=== PATIENT | female | born 1945 | race Caucasian/White ===

== ENCOUNTER 2022-03-17 09:29 | Emergency (ER) | payer MEDICARE ==
[2022-03-17] MEDS ORDERED: normal saline 1000ml 1,000 ML IV ONE (10:30)
[2022-03-17 10:52] LABS: BASOPHILS % (AUTO) 0.6 % (0-1); EOSINOPHILS # (AUTO) 0.1 X10'3 (0-0.9); EOSINOPHILS % (AUTO) 0.8 % (0-6); HEMATOCRIT 39.6 % (35.0-45.0); HEMOGLOBIN 13.1 g/dl (12.0-16.0); LYMPHOCYTES # (AUTO) 0.8 X10'3 (1.1-4.8); LYMPHOCYTES % (AUTO) 9.1 % (21-51); MEAN CORPUSCULAR VOLUME 93.9 FL (78-98); MEAN PLATELET VOLUME 7.7 FL (7.4-10.4); MONOCYTES # (AUTO) 0.5 X10'3 (0-0.9); MONOCYTES % (AUTO) 6.3 % (2-12); NEUTROPHILS # (AUTO) 7.1 X10'3 (1.8-7.7); NEUTROPHILS % (AUTO) 83.2 % (42-75); PLATELET COUNT 239 X10'3 (140-440); RED BLOOD COUNT 4.22 X10'6 (4.20-5.60); RED CELL DISTRIBUTION WIDTH 13.2 % (11.5-14.5); WHITE BLOOD COUNT 8.5 X10'3 (4.5-11.0)
[2022-03-17 11:07] LABS: ALANINE AMINOTRANSFERASE 23 U/L (12-78); ALBUMIN 3.2 G/DL (3.4-5.0); ALBUMIN/GLOBULIN RATIO 0.9 (1.1-1.5); ALKALINE PHOSPHATASE 99 IU/L (46-116); ANION GAP 6 (8-16); ASPARTATE AMINO TRANSFERASE 55 U/L (10-37); BILIRUBIN,TOTAL 0.5 MG/DL (0.1-1.0); BLOOD UREA NITROGEN 11 MG/DL (7-18); BUN/CREATININE RATIO 15.5 (6.6-38.0); CALCIUM 9.1 MG/DL (8.5-10.1); CHLORIDE 103 MMOL/L (99-107); CREATININE 0.71 MG/DL (0.40-0.90); GLUCOSE 94 MG/DL (70-104); SODIUM 141 MMOL/L (135-145); TOTAL CARBON DIOXIDE 31.8 MMOL/L (24-32); TOTAL PROTEIN 6.6 G/DL (6.4-8.2); eGFR 80 ML/MIN
[2022-03-17 11:10] LABS: CLARITY,URINE CLEAR (Clear); COLOR,URINE YELLOW (Yellow); GLUCOSE, URINE NEGATIVE (Neg); KETONES,URINE NEGATIVE (Neg); LEUKOCYTE ESTERASE ,URINE NEGATIVE (Neg); NITRITES, URINE NEGATIVE (Neg); OCCULT BLOOD,URINE NEGATIVE (Neg); PROTEIN,URINE NEGATIVE (Neg)
[2022-03-17 11:26] LABS: UA COLLECTION TYPE FOLEY CATH
[2022-03-17 12:29] VITALS: BP 174/67
== END 2022-03-17 12:31 | disposition home or self-care (01) ==
LOC: ER 09:29
DX: F03.90 Unspecified dementia, unspecified severity, without behavioral disturbance, psychotic disturbance, mood disturbance, and anxiety (principal); R53.1 Weakness; Z88.2 Allergy status to sulfonamides; Z79.899 Other long term (current) drug therapy
CPT/HCPCS: 36415; 80053; 81003; 85025; 93005; 96360; 99284; J7030

== ENCOUNTER 2022-03-20 15:44 | Emergency (ER) | payer MEDICARE ==
[~2022-03-20] VITALS: Ht 165.1 cm; Wt 50.0 kg
--- NOTE | 2022-03-20 17:37 | NUR ---
LANCE HORTON(SISTER) #[phone] CALLED TO SAY THAT PT OVER THE PAST FEW WEEKS HAS PROGRESSIVLY GOT WEAKEN HASNT BEEN TAKING MEDS AND HASNT BEEN EATING. FAMILY ALSO STATES SHE HAD A FALL ON November HAD A FALL SEEN AT [facility] HAS GOTTEN WEAKER SINCE THEN. HISTORY OF STROKE 10 YEARS AGO
[2022-03-20 17:42] LABS: BASOPHILS # (AUTO) 0.1 X10'3 (0-0.2); BASOPHILS % (AUTO) 0.5 % (0-1); EOSINOPHILS # (AUTO) 0.1 X10'3 (0-0.9); EOSINOPHILS % (AUTO) 0.6 % (0-6); HEMATOCRIT 40.3 % (35.0-45.0); HEMOGLOBIN 13.4 g/dl (12.0-16.0); LYMPHOCYTES # (AUTO) 0.7 X10'3 (1.1-4.8); MEAN CORPUSCULAR HEMOGLOBIN 31.3 PG (27.0-31.0); MEAN CORPUSCULAR HGB CONC 33.4 g/dL (33.0-36.5); MEAN CORPUSCULAR VOLUME 93.9 FL (78-98); MEAN PLATELET VOLUME 8.4 FL (7.4-10.4); MONOCYTES # (AUTO) 0.6 X10'3 (0-0.9); MONOCYTES % (AUTO) 6.3 % (2-12); NEUTROPHILS # (AUTO) 8.7 X10'3 (1.8-7.7); NEUTROPHILS % (AUTO) 85.6 % (42-75); PLATELET COUNT 234 X10'3 (140-440); RED BLOOD COUNT 4.29 X10'6 (4.20-5.60); RED CELL DISTRIBUTION WIDTH 13.2 % (11.5-14.5); WHITE BLOOD COUNT 10.1 X10'3 (4.5-11.0)
[2022-03-20 17:50] LABS: APTT 27 SECONDS (22-32)
[2022-03-20 17:53] LABS: ALANINE AMINOTRANSFERASE 19 U/L (12-78); ALBUMIN 3.3 G/DL (3.4-5.0); ALBUMIN/GLOBULIN RATIO 0.9 (1.1-1.5); ALKALINE PHOSPHATASE 105 IU/L (46-116); ANION GAP 9 (8-16); ASPARTATE AMINO TRANSFERASE 44 U/L (10-37); BLOOD UREA NITROGEN 9 MG/DL (7-18); BUN/CREATININE RATIO 12.7 (6.6-38.0); CALCIUM 9.5 MG/DL (8.5-10.1); CHLORIDE 101 MMOL/L (99-107); CREATININE 0.71 MG/DL (0.40-0.90); GLUCOSE 92 MG/DL (70-104); SODIUM 140 MMOL/L (135-145); TOTAL CARBON DIOXIDE 30.5 MMOL/L (24-32); TOTAL PROTEIN 7.1 G/DL (6.4-8.2); eGFR 80 ML/MIN
[2022-03-20 18:51] VITALS: BP 154/68
== END 2022-03-20 18:58 | disposition home or self-care (01) ==
LOC: ER 15:44
DX: R42 Dizziness and giddiness (principal); G89.29 Other chronic pain; M54.9 Dorsalgia, unspecified; F03.90 Unspecified dementia, unspecified severity, without behavioral disturbance, psychotic disturbance, mood disturbance, and anxiety; Z88.2 Allergy status to sulfonamides; W19.XXXA Unspecified fall, initial encounter; Y93.89 Activity, other specified; Y92.89 Other specified places as the place of occurrence of the external cause; Y99.8 Other external cause status
CPT/HCPCS: 36415; 70450; 71045; 72125; 80053; 84484; 85025; 85610; 85730; 93005; 99285

== ENCOUNTER 2022-03-25 12:29 | Inpatient (IN) | payer MEDICARE ==
[~2022-03-25] VITALS: Ht 167.6 cm; Wt 68.4 kg
[2022-03-25] MEDS: normal saline 1000ml 1,000 ML IV SCH (07:53)
[2022-03-25] MEDS ORDERED: normal saline 1000ML IV soln IVB ONE (14:35)
[2022-03-25] MEDS ORDERED: morphine 4 MG/ML inj SYRINge IV ONE ×2 (14:35→16:10)
[2022-03-25 15:02] LABS: BASOPHILS % (AUTO) 0.3 % (0-1); EOSINOPHILS % (AUTO) 0.1 % (0-6); HEMATOCRIT 41.9 % (35.0-45.0); HEMOGLOBIN 13.9 g/dl (12.0-16.0); LYMPHOCYTES # (AUTO) 0.7 X10'3 (1.1-4.8); MEAN CORPUSCULAR HEMOGLOBIN 31.4 PG (27.0-31.0); MEAN CORPUSCULAR HGB CONC 33.1 g/dL (33.0-36.5); MEAN CORPUSCULAR VOLUME 94.8 FL (78-98); MEAN PLATELET VOLUME 8.2 FL (7.4-10.4); MONOCYTES % (AUTO) 6.2 % (2-12); NEUTROPHILS # (AUTO) 14.7 X10'3 (1.8-7.7); NEUTROPHILS % (AUTO) 89.4 % (42-75); PLATELET COUNT 266 X10'3 (140-440); RED BLOOD COUNT 4.42 X10'6 (4.20-5.60); RED CELL DISTRIBUTION WIDTH 13.2 % (11.5-14.5); WHITE BLOOD COUNT 16.5 X10'3 (4.5-11.0)
[2022-03-25 15:11] LABS: ALANINE AMINOTRANSFERASE 16 U/L (12-78); ALBUMIN 2.9 G/DL (3.4-5.0); ALBUMIN/GLOBULIN RATIO 0.6 (1.1-1.5); ALKALINE PHOSPHATASE 112 IU/L (46-116); ANION GAP 14 (8-16); ASPARTATE AMINO TRANSFERASE 75 U/L (10-37); BLOOD UREA NITROGEN 20 MG/DL (7-18); BUN/CREATININE RATIO 20.6 (6.6-38.0); CALCIUM 9.5 MG/DL (8.5-10.1); CHLORIDE 98 MMOL/L (99-107); CREATININE 0.97 MG/DL (0.40-0.90); GLUCOSE 109 MG/DL (70-104); SODIUM 137 MMOL/L (135-145); TOTAL CARBON DIOXIDE 25.5 MMOL/L (24-32); TOTAL PROTEIN 7.4 G/DL (6.4-8.2); eGFR 56 ML/MIN
[2022-03-25 15:12] LABS: POTASSIUM 4.1 MMOL/L (3.5-5.1)
[2022-03-25 15:18] LABS: CREATINE KINASE 213 U/L (26-192)
[2022-03-25] MEDS ORDERED: metoprolol tartrate 50mg tablet PO ONE (17:35)
[2022-03-25] MEDS ORDERED: metoprolol tartrate 25mg tablet PO ONE (17:35)
[2022-03-25] MEDS ORDERED: diltiazem-NS 100mg/100ml 100 ML IV SCH (17:40)
[2022-03-25] MEDS ORDERED: diltiazem 5mg/ml 5ml inj. IV ONE ×2 (17:40→17:45)
[2022-03-25] MEDS ORDERED: magnesium hydroxide 30ml (MOM) UD suspension PO PRN (17:45)
[2022-03-25] MEDS ORDERED: ondansetron/PF 4mg/2ml inj IV PRN (17:45)
[2022-03-25] MEDS ORDERED: PERFLUTREN PROTEIN-A MICROSPHR (Optison) 0.22 MG/ML 3ML VIAL IV ONE (17:45)
[2022-03-25] MEDS ORDERED: magnesium Cl slow-release 64mg tablet PO PRN (17:45)
[2022-03-25] MEDS ORDERED: HYDROcodone/acetaminophen 5mg/325mg tablet PO PRN (17:45)
[2022-03-25] MEDS ORDERED: potassium Cl 40MEQ/1/2NS 520ml 520 ML IV PRN (17:45)
[2022-03-25] MEDS ORDERED: acetaminophen 650mg rectal suppository RC PRN (17:45)
[2022-03-25] MEDS ORDERED: bisacodyl 10mg suppository rectal RC PRN (17:45)
[2022-03-25] MEDS ORDERED: furosemide 10 MG/1 ML 10ml inj IV ONE (17:45)
[2022-03-25] MEDS ORDERED: potassium Cl 20 mEq SR tablet PO PRN ×2 (17:45)
[2022-03-25] MEDS ORDERED: magnesium 4gm in 100ml NS 100 ML IV PRN (17:45)
[2022-03-25] MEDS ORDERED: diltiazem-D5W 125mg/125ml 125 ML IV SCH (17:45)
[2022-03-25] MEDS ORDERED: morphine 2 MG/ML inj. syringe IV PRN (17:45)
[2022-03-25] MEDS ORDERED: diphenhydrAMINE 25mg capsule PO PRN (17:45)
[2022-03-25] MEDS ORDERED: mag hydrox/Alum hydrox/simeth 30ml oral suspension PO PRN (17:45)
[2022-03-25 18:22] LABS: HEMOGLOBIN A1C 5.7 % (4.5-6.2)
[2022-03-25] MEDS ORDERED: DABI150C PO (18:22)
[2022-03-25] MEDS ORDERED: DULO30CA52 PO (18:22)
[2022-03-25] MEDS ORDERED: GABA300C PO (18:22)
[2022-03-25] MEDS ORDERED: LEVO50TA8 PO (18:22)
[2022-03-25] MEDS ORDERED: BUPR300T86 PO (18:22)
[2022-03-25] MEDS ORDERED: METO-395 PO (18:22)
[2022-03-25 19:09] LABS: CLARITY,URINE CLOUDY (Clear); COLOR,URINE YELLOW (Yellow); GLUCOSE, URINE NEGATIVE (Neg); KETONES,URINE NEGATIVE (Neg); LEUKOCYTE ESTERASE ,URINE LARGE (Neg); NITRITES, URINE NEGATIVE (Neg); OCCULT BLOOD,URINE SMALL (Neg); PH,URINE 5.5 (4.8-8.0); PROTEIN,URINE 30 mg/dl (Neg)
[2022-03-25] MEDS: furosemide 40mg/4ml inj IV SCH (19:13)
[2022-03-25 19:15] LABS: UA COLLECTION TYPE STRAIGHT CATH
[2022-03-25 19:16] LABS: BACTERIA,URINE 3+ /HPF (Neg); SQUAMOUS EPITHELIAL CELL,UR FEW /LPF (FEW); TRANSITIONAL EPI CELLS,URINE FEW /HPF; WBC,URINE TNTC /HPF (0-4)
[2022-03-25] MEDS: heparin, porcine 5000 units/ml vial SQ SCH (20:00)
[2022-03-25] MEDS: K and/or MAG REPLACEMENT MC SCH (20:00)
[2022-03-25] MEDS: docusate sod 100mg capsule PO SCH (20:00)
[2022-03-25] MEDS: CefTRIAXone/D5W-Rocephin 1gm 50 ML IV SCH (22:50)
[2022-03-26] MEDS: CefTRIAXone/D5W-Rocephin 1gm 50 ML IV SCH ×2 (00:53→07:43)
[2022-03-26 03:43] LABS: BASOPHILS % (AUTO) 0.3 % (0-1); EOSINOPHILS % (AUTO) 0.1 % (0-6); HEMATOCRIT 35.7 % (35.0-45.0); HEMOGLOBIN 11.8 g/dl (12.0-16.0); LYMPHOCYTES # (AUTO) 0.6 X10'3 (1.1-4.8); LYMPHOCYTES % (AUTO) 4.4 % (21-51); MEAN CORPUSCULAR HEMOGLOBIN 31.1 PG (27.0-31.0); MEAN PLATELET VOLUME 8.3 FL (7.4-10.4); MONOCYTES % (AUTO) 7.1 % (2-12); NEUTROPHILS # (AUTO) 11.9 X10'3 (1.8-7.7); NEUTROPHILS % (AUTO) 88.1 % (42-75); PLATELET COUNT 241 X10'3 (140-440); RED BLOOD COUNT 3.79 X10'6 (4.20-5.60); RED CELL DISTRIBUTION WIDTH 13.3 % (11.5-14.5); WHITE BLOOD COUNT 13.5 X10'3 (4.5-11.0)
[2022-03-26 04:12] LABS: ALANINE AMINOTRANSFERASE 35 U/L (12-78); ALBUMIN 2.4 G/DL (3.4-5.0); ALBUMIN/GLOBULIN RATIO 0.6 (1.1-1.5); ALKALINE PHOSPHATASE 253 IU/L (46-116); ANION GAP 14 (8-16); ASPARTATE AMINO TRANSFERASE 143 U/L (10-37); BILIRUBIN,TOTAL 1.4 MG/DL (0.1-1.0); BLOOD UREA NITROGEN 28 MG/DL (7-18); CALCIUM 8.8 MG/DL (8.5-10.1); CHLORIDE 102 MMOL/L (99-107); CHOL/HDL RATIO 7.5 (0.00-4.99); CHOLESTEROL 120 MG/DL (0-200); CREATININE 1.27 MG/DL (0.40-0.90); GLUCOSE 95 MG/DL (70-104); HDL CHOLESTEROL 16 MG/DL (35-60); LDL CHOLESTEROL 84 MG/DL (50-100); MAGNESIUM 1.9 MG/DL (1.5-2.4); PHOSPHORUS 4.5 MG/DL (2.3-4.5); POTASSIUM 3.8 MMOL/L (3.5-5.1); SODIUM 140 MMOL/L (135-145); TOTAL CARBON DIOXIDE 23.7 MMOL/L (24-32); TOTAL PROTEIN 6.3 G/DL (6.4-8.2); TRIGLYCERIDES 118 MG/DL (20-135); eGFR 41 ML/MIN
[2022-03-26] MEDS: heparin, porcine 5000 units/ml vial SQ SCH ×2 (07:45→21:15)
[2022-03-26] MEDS: docusate sod 100mg capsule PO SCH ×2 (07:45→21:14)
[2022-03-26] MEDS: furosemide 40mg/4ml inj IV SCH (07:45)
[2022-03-26] MEDS: K and/or MAG REPLACEMENT MC SCH ×2 (08:00→19:14)
[2022-03-26] MEDS ORDERED: metoprolol succinate 25mg (24-HOUR) SR. Tablet PO SCH (10:20)
[2022-03-26] MEDS: diltiazem SR 60mg capsule (twice daily) PO SCH ×2 (11:40→21:14)
--- NOTE | 2022-03-26 15:38 | NUR ---
Per MD Chacon, inform MD when pt's a-fib is over 130.
[2022-03-26 17:15] VITALS: BP 136/66
[2022-03-26] MEDS: acetaminophen 325mg tablet PO PRN (17:36)
[2022-03-26 18:00] VITALS: BP 136/66
--- NOTE | 2022-03-26 18:31 | NUR ---
Problems reprioritized. Patient report given, questions answered & plan of care reviewed with DIANA KARIMI.
[2022-03-26 20:00] VITALS: BP_SYST 129; BP_SYST 134; BP_DIAS 44; BP_DIAS 48
[2022-03-26] MEDS ORDERED: dabigatran 150mg capsule PO SCH (20:00)
[2022-03-26 22:00] VITALS: BP 119/49
[2022-03-27 02:00] VITALS: BP 124/51
--- NOTE | 2022-03-27 05:00 | NUR ---
Pt HR down to 38 for a couple second then turn to 50+ -- 60+, BP is 129/48, SaO2 99-100 % on 2 LPMO2, current is on Cardizem 120 mg PO Q 12 hours (It started on 03/25/2022 AM), will let AM nurse notify MD to see of can decrease Cardizem dose to 60 mg PO Q12 hours, continue to closely monitor HR and the rest of V/S.
--- NOTE | 2022-03-27 06:46 | NUR ---
Patient in room PCU 3024. I have received report from Dionicio ORTIZ and had the opportunity to ask questions and assume patient care.
[2022-03-27 07:12] LABS: BASOPHILS % (AUTO) 0.1 % (0-1); EOSINOPHILS % (AUTO) 0.1 % (0-6); HEMATOCRIT 41.1 % (35.0-45.0); HEMOGLOBIN 13.4 g/dl (12.0-16.0); LYMPHOCYTES % (AUTO) 6.5 % (21-51); MEAN CORPUSCULAR HEMOGLOBIN 31.3 PG (27.0-31.0); MEAN CORPUSCULAR HGB CONC 32.7 g/dL (33.0-36.5); MEAN CORPUSCULAR VOLUME 95.7 FL (78-98); MEAN PLATELET VOLUME 9.6 FL (7.4-10.4); MONOCYTES # (AUTO) 0.7 X10'3 (0-0.9); MONOCYTES % (AUTO) 4.7 % (2-12); NEUTROPHILS # (AUTO) 13.6 X10'3 (1.8-7.7); NEUTROPHILS % (AUTO) 88.6 % (42-75); PLATELET COUNT 232 X10'3 (140-440); RED BLOOD COUNT 4.29 X10'6 (4.20-5.60); RED CELL DISTRIBUTION WIDTH 13.3 % (11.5-14.5); WHITE BLOOD COUNT 15.3 X10'3 (4.5-11.0)
[2022-03-27 07:21] LABS: ALANINE AMINOTRANSFERASE 37 U/L (12-78); ALBUMIN 2.4 G/DL (3.4-5.0); ALBUMIN/GLOBULIN RATIO 0.5 (1.1-1.5); ALKALINE PHOSPHATASE 270 IU/L (46-116); ANION GAP 12 (8-16); ASPARTATE AMINO TRANSFERASE 114 U/L (10-37); BILIRUBIN,TOTAL 1.1 MG/DL (0.1-1.0); BLOOD UREA NITROGEN 35 MG/DL (7-18); BUN/CREATININE RATIO 25.2 (6.6-38.0); CHLORIDE 97 MMOL/L (99-107); CREATININE 1.39 MG/DL (0.40-0.90); GLUCOSE 89 MG/DL (70-104); MAGNESIUM 2.1 MG/DL (1.5-2.4); PHOSPHORUS 4.4 MG/DL (2.3-4.5); POTASSIUM 3.8 MMOL/L (3.5-5.1); SODIUM 132 MMOL/L (135-145); TOTAL CARBON DIOXIDE 23.3 MMOL/L (24-32); TOTAL PROTEIN 7.1 G/DL (6.4-8.2); eGFR 37 ML/MIN
[2022-03-27] MEDS: K and/or MAG REPLACEMENT MC SCH ×2 (08:00→20:00)
[2022-03-27] MEDS: metoprolol succinate 25mg (24-HOUR) SR. Tablet PO SCH (09:44)
[2022-03-27] MEDS: duloxetine 30mg CAPSULE.DR PO SCH (09:44)
[2022-03-27] MEDS: buPROPion SR 150mg tablet PO SCH ×2 (09:45→19:25)
[2022-03-27] MEDS: docusate sod 100mg capsule PO SCH ×2 (09:45→19:25)
[2022-03-27] MEDS: heparin, porcine 5000 units/ml vial SQ SCH ×2 (09:45→19:24)
[2022-03-27] MEDS: levoTHYROXINE 25mcg tablet PO SCH (09:46)
[2022-03-27] MEDS: CefTRIAXone/D5W-Rocephin 1gm 50 ML IV SCH (09:46)
--- NOTE | 2022-03-27 10:53 | NUR ---
Page to rf test technician [id number] Aaron. Pt has TLSO brace ordered. Please fit patient for brace so they can work with PT. Thanks Jennifer @[phone]
[2022-03-27 11:42] VITALS: BP 117/43
[2022-03-27] MEDS: morphine 2 MG/ML inj. syringe IV PRN (15:42)
[2022-03-27 17:00] VITALS: BP 156/58
--- NOTE | 2022-03-27 17:50 | NUR ---
Message: Room 3024A [place] assessment of I&O's today shows patient had a urine output of 250 mL in the last 12 hours. Antoni [phone] Custom Responses: promotional table spacer Transaction number: [id number]
[2022-03-27 17:51] VITALS: BP_SYST 133; BP_SYST 137; BP_SYST 139; BP_DIAS 44; BP_DIAS 46; BP_DIAS 53
[2022-03-27 18:00] VITALS: BP 133/53
--- NOTE | 2022-03-27 18:14 | NUR ---
Problems reprioritized. Patient report given, questions answered & plan of care reviewed with Keerthi RN. Patient resting in bed in no acute distress.
--- NOTE | 2022-03-27 18:16 | NUR ---
Orientee documentation: I have reviewed and agree with all interventions, assessments performed and documented by Antoni ORTIZ. Orientee Medication Administration: For this medication-pass time frame, all medication were reviewed, dispensed, administered and documented per hospital policy by Antoni ORTIZ .
[2022-03-27] MEDS: normal saline 1000ml 1,000 ML IV SCH (18:30)
[2022-03-27 22:00] VITALS: BP 128/65
[2022-03-28 04:30] VITALS: BP 129/50
[2022-03-28] MEDS: acetaminophen 325mg tablet PO PRN (04:45)
[2022-03-28] MEDS: normal saline 1000ml 1,000 ML IV SCH (04:49)
[2022-03-28 05:53] LABS: BASOPHILS % (AUTO) 0.4 % (0-1); EOSINOPHILS # (AUTO) 0.1 X10'3 (0-0.9); EOSINOPHILS % (AUTO) 0.8 % (0-6); HEMATOCRIT 33.4 % (35.0-45.0); HEMOGLOBIN 11.2 g/dl (12.0-16.0); LYMPHOCYTES # (AUTO) 0.8 X10'3 (1.1-4.8); LYMPHOCYTES % (AUTO) 7.4 % (21-51); MEAN CORPUSCULAR HEMOGLOBIN 31.3 PG (27.0-31.0); MEAN CORPUSCULAR HGB CONC 33.4 g/dL (33.0-36.5); MEAN CORPUSCULAR VOLUME 93.7 FL (78-98); MONOCYTES # (AUTO) 0.6 X10'3 (0-0.9); MONOCYTES % (AUTO) 5.4 % (2-12); PLATELET COUNT 227 X10'3 (140-440); RED BLOOD COUNT 3.56 X10'6 (4.20-5.60); RED CELL DISTRIBUTION WIDTH 13.4 % (11.5-14.5); WHITE BLOOD COUNT 10.5 X10'3 (4.5-11.0)
[2022-03-28 06:00] VITALS: BP 125/50
[2022-03-28 06:14] LABS: ALANINE AMINOTRANSFERASE 38 U/L (12-78); ALBUMIN 1.9 G/DL (3.4-5.0); ALBUMIN/GLOBULIN RATIO 0.5 (1.1-1.5); ALKALINE PHOSPHATASE 244 IU/L (46-116); ANION GAP 10 (8-16); ASPARTATE AMINO TRANSFERASE 106 U/L (10-37); BILIRUBIN,TOTAL 0.7 MG/DL (0.1-1.0); BLOOD UREA NITROGEN 37 MG/DL (7-18); BUN/CREATININE RATIO 28.5 (6.6-38.0); CALCIUM 8.3 MG/DL (8.5-10.1); CHLORIDE 96 MMOL/L (99-107); GLUCOSE 117 MG/DL (70-104); MAGNESIUM 1.7 MG/DL (1.5-2.4); PHOSPHORUS 2.3 MG/DL (2.3-4.5); SODIUM 131 MMOL/L (135-145); TOTAL CARBON DIOXIDE 25.5 MMOL/L (24-32); TOTAL PROTEIN 5.8 G/DL (6.4-8.2); eGFR 40 ML/MIN
[2022-03-28] MEDS: levoTHYROXINE 25mcg tablet PO SCH (07:00)
[2022-03-28] MEDS: docusate sod 100mg capsule PO SCH ×2 (08:00→20:57)
[2022-03-28] MEDS: buPROPion SR 150mg tablet PO SCH ×2 (08:33→20:57)
[2022-03-28] MEDS: duloxetine 30mg CAPSULE.DR PO SCH (08:34)
[2022-03-28] MEDS: metoprolol succinate 25mg (24-HOUR) SR. Tablet PO SCH (08:34)
[2022-03-28] MEDS: CefTRIAXone/D5W-Rocephin 1gm 50 ML IV SCH (08:35)
[2022-03-28] MEDS: K and/or MAG REPLACEMENT MC SCH ×2 (08:37→20:00)
[2022-03-28] MEDS: heparin, porcine 5000 units/ml vial SQ SCH ×2 (08:37→20:58)
[2022-03-28] MEDS ORDERED: POTASSIUM BICARB 20meq eff tab 20 MEQ TABLET.EFF PO PRN ×2 (09:57)
--- NOTE | 2022-03-28 10:44 | NUR ---
report given to Sariah ORTIZ earlier this shift. We traded patients so I could take care of her patient in D[facility]
[2022-03-28 11:00] VITALS: BP 125/75
[2022-03-28] MEDS: HYDROcodone/acetaminophen 10/325mg tab PO PRN (13:39)
[2022-03-28 14:30] VITALS: BP 141/55
[2022-03-28] MEDS: morphine 2 MG/ML inj. syringe IV PRN (15:00)
[2022-03-28 18:00] VITALS: BP 110/74
[2022-03-28 22:00] VITALS: BP 123/79
[2022-03-28] MEDS ORDERED: magnesium Cl slow-release 64mg tablet PO PRN (23:20)
[2022-03-28] MEDS ORDERED: potassium Cl 40MEQ/1/2NS 520ml 520 ML IV PRN ×2 (23:20)
[2022-03-28] MEDS ORDERED: potassium Cl 20 mEq SR tablet PO PRN ×2 (23:20)
[2022-03-29] VITALS (10 sets, daily range): BP systolic 115–152; BP diastolic 51–75
[2022-03-29 06:28] LABS: BASOPHILS % (AUTO) 0.4 % (0-1); EOSINOPHILS # (AUTO) 0.1 X10'3 (0-0.9); EOSINOPHILS % (AUTO) 1.1 % (0-6); HEMATOCRIT 33.8 % (35.0-45.0); HEMOGLOBIN 11.4 g/dl (12.0-16.0); LYMPHOCYTES # (AUTO) 0.7 X10'3 (1.1-4.8); LYMPHOCYTES % (AUTO) 8.6 % (21-51); MEAN CORPUSCULAR HEMOGLOBIN 31.7 PG (27.0-31.0); MEAN CORPUSCULAR HGB CONC 33.6 g/dL (33.0-36.5); MEAN CORPUSCULAR VOLUME 94.2 FL (78-98); MEAN PLATELET VOLUME 9.2 FL (7.4-10.4); MONOCYTES # (AUTO) 0.5 X10'3 (0-0.9); MONOCYTES % (AUTO) 5.7 % (2-12); NEUTROPHILS % (AUTO) 84.2 % (42-75); PLATELET COUNT 235 X10'3 (140-440); RED BLOOD COUNT 3.59 X10'6 (4.20-5.60); RED CELL DISTRIBUTION WIDTH 13.3 % (11.5-14.5); WHITE BLOOD COUNT 8.3 X10'3 (4.5-11.0)
--- NOTE | 2022-03-29 06:30 | NUR ---
Patient in room PCU 3024. I have received report from Keerthi ORTIZ and had the opportunity to ask questions and assume patient care.
[2022-03-29 06:46] LABS: ALANINE AMINOTRANSFERASE 43 U/L (12-78); ALBUMIN 1.9 G/DL (3.4-5.0); ALBUMIN/GLOBULIN RATIO 0.5 (1.1-1.5); ALKALINE PHOSPHATASE 266 IU/L (46-116); ANION GAP 8 (8-16); ASPARTATE AMINO TRANSFERASE 114 U/L (10-37); BILIRUBIN,TOTAL 0.7 MG/DL (0.1-1.0); BLOOD UREA NITROGEN 30 MG/DL (7-18); BUN/CREATININE RATIO 26.8 (6.6-38.0); CALCIUM 8.7 MG/DL (8.5-10.1); CHLORIDE 102 MMOL/L (99-107); CREATININE 1.12 MG/DL (0.40-0.90); GLUCOSE 113 MG/DL (70-104); PHOSPHORUS 2.3 MG/DL (2.3-4.5); POTASSIUM 4.4 MMOL/L (3.5-5.1); SODIUM 138 MMOL/L (135-145); TOTAL PROTEIN 5.9 G/DL (6.4-8.2); eGFR 47 ML/MIN
[2022-03-29] MEDS: K and/or MAG REPLACEMENT MC SCH ×4 (08:00→20:00)
[2022-03-29] MEDS: heparin, porcine 5000 units/ml vial SQ SCH ×2 (08:00→20:45)
[2022-03-29] MEDS: metoprolol succinate 25mg (24-HOUR) SR. Tablet PO SCH (08:07)
[2022-03-29] MEDS: duloxetine 30mg CAPSULE.DR PO SCH (08:07)
[2022-03-29] MEDS: buPROPion SR 150mg tablet PO SCH ×2 (08:07→20:45)
[2022-03-29] MEDS: docusate sod 100mg capsule PO SCH ×2 (08:08→20:45)
[2022-03-29] MEDS: levoTHYROXINE 25mcg tablet PO SCH (08:08)
--- NOTE | 2022-03-29 08:34 | NUR ---
Initial: Pt admitted w/ recurrent falls with T11,12,L1 fractures, UTI and sepsis per EMR. Currently on Heart Healthy diet w/ avg intake 43% of meals not meeting needs. Recommend liberalizing to Regular diet given lipid panel. Pt can benefit from Ensure Enlive TID to assist w/ meeting needs. LBM 03/26 receiving routine colace. Will continue to monitor. Recs; 1. Liberalize to Regular diet; lipid panel good 2. Ensure Enlive TID; pending MD verification 3. Bowel care per rx 4. Scaled wts Addendum: 03/29/22 at [address] Amended: Links added.
[2022-03-29] MEDS: HYDROcodone/acetaminophen 10/325mg tab PO PRN (09:25)
--- NOTE | 2022-03-29 09:39 | NUR ---
Message: [id number] A Pt POA is requesting an MRI of her head. Thank you Laura ZAMBRANO [phone] Custom Responses: promotional table spacer Transaction number: [id number]
--- NOTE | 2022-03-29 10:54 | NUR ---
Patient transferred to IR for procedure.
[2022-03-29] MEDS ORDERED: fentaNYL/PF 50MCG/1 ML 2ML syringe ONE (10:58)
[2022-03-29] MEDS ORDERED: midazolam 1 mg/ML 2ml injection ONE (10:58)
[2022-03-29] MEDS ORDERED: diphenhydrAMINE 50 mg/ml inj ONE (10:58)
[2022-03-29] MEDS: normal saline 1000ml 1,000 ML IV SCH ×2 (11:15→20:45)
[2022-03-29] MEDS ORDERED: iohexol 300mg/ml 100ml inj. ONE (11:20)
--- NOTE | 2022-03-29 12:05 | NUR ---
Patient returned to floor from procedure.
[2022-03-29] MEDS: CefTRIAXone/D5W-Rocephin 1gm 50 ML IV SCH (12:44)
--- NOTE | 2022-03-29 13:34 | NUR ---
REAGENT TENDER HELPER documentation: I have reviewed and agree with all interventions, assessments performed and documented by KENYA FLYNN.
--- NOTE | 2022-03-29 17:26 | NUR ---
KENYA Medication Administration: For this medication-pass time frame, all medication were reviewed, dispensed, administered and documented per hospital policy by KENYA FLYNN.
--- NOTE | 2022-03-29 18:15 | NUR ---
Problems reprioritized. Patient report given, questions answered & plan of care reviewed with Keerthi ORTIZ.
[2022-03-29] MEDS ORDERED: aspirin 81mg tab.chew PO ONE (20:00)
--- NOTE | 2022-03-29 21:00 | NUR ---
REFUSED TO BE TURNED TO HER SIDE.
[2022-03-30 02:00] VITALS: BP 130/59
[2022-03-30 06:00] VITALS: BP 153/62
[2022-03-30 06:02] LABS: BASOPHILS % (AUTO) 0.5 % (0-1); EOSINOPHILS # (AUTO) 0.1 X10'3 (0-0.9); HEMATOCRIT 35.3 % (35.0-45.0); HEMOGLOBIN 11.8 g/dl (12.0-16.0); LYMPHOCYTES # (AUTO) 0.9 X10'3 (1.1-4.8); LYMPHOCYTES % (AUTO) 9.6 % (21-51); MEAN CORPUSCULAR HGB CONC 33.5 g/dL (33.0-36.5); MEAN CORPUSCULAR VOLUME 95.7 FL (78-98); MEAN PLATELET VOLUME 8.6 FL (7.4-10.4); MONOCYTES # (AUTO) 0.8 X10'3 (0-0.9); MONOCYTES % (AUTO) 8.8 % (2-12); NEUTROPHILS # (AUTO) 7.2 X10'3 (1.8-7.7); NEUTROPHILS % (AUTO) 80.1 % (42-75); PLATELET COUNT 226 X10'3 (140-440); RED BLOOD COUNT 3.69 X10'6 (4.20-5.60); RED CELL DISTRIBUTION WIDTH 13.9 % (11.5-14.5)
[2022-03-30 06:12] LABS: ALANINE AMINOTRANSFERASE 37 U/L (12-78); ALBUMIN 1.9 G/DL (3.4-5.0); ALBUMIN/GLOBULIN RATIO 0.5 (1.1-1.5); ALKALINE PHOSPHATASE 275 IU/L (46-116); ANION GAP 8 (8-16); ASPARTATE AMINO TRANSFERASE 76 U/L (10-37); BILIRUBIN,TOTAL 0.7 MG/DL (0.1-1.0); BLOOD UREA NITROGEN 25 MG/DL (7-18); BUN/CREATININE RATIO 23.1 (6.6-38.0); CALCIUM 8.5 MG/DL (8.5-10.1); CHLORIDE 105 MMOL/L (99-107); CREATININE 1.08 MG/DL (0.40-0.90); GLUCOSE 84 MG/DL (70-104); MAGNESIUM 2.3 MG/DL (1.5-2.4); PHOSPHORUS 2.8 MG/DL (2.3-4.5); POTASSIUM 4.5 MMOL/L (3.5-5.1); SODIUM 138 MMOL/L (135-145); TOTAL CARBON DIOXIDE 25.5 MMOL/L (24-32); TOTAL PROTEIN 6.1 G/DL (6.4-8.2); eGFR 49 ML/MIN
--- NOTE | 2022-03-30 06:59 | NUR ---
Patient in room PCU 3024. I have received report from DIANA Pendleton and had the opportunity to ask questions and assume patient care.
[2022-03-30] MEDS: K and/or MAG REPLACEMENT MC SCH ×4 (08:00→19:42)
[2022-03-30] MEDS: levoTHYROXINE 25mcg tablet PO SCH (08:43)
[2022-03-30] MEDS: docusate sod 100mg capsule PO SCH ×2 (08:43→20:25)
[2022-03-30] MEDS: buPROPion SR 150mg tablet PO SCH ×2 (08:43→20:24)
[2022-03-30] MEDS: atorvastatin 20mg tablet PO SCH (08:43)
[2022-03-30] MEDS: aspirin 81mg tab.chew PO SCH (08:43)
[2022-03-30] MEDS: duloxetine 30mg CAPSULE.DR PO SCH (08:44)
[2022-03-30] MEDS: metoprolol succinate 25mg (24-HOUR) SR. Tablet PO SCH (08:44)
[2022-03-30] MEDS: heparin, porcine 5000 units/ml vial SQ SCH (08:45)
[2022-03-30] MEDS: CefTRIAXone/D5W-Rocephin 1gm 50 ML IV SCH (08:45)
[2022-03-30 11:00] VITALS: BP 156/77
[2022-03-30] MEDS: normal saline 1000ml 1,000 ML IV SCH ×2 (13:55→23:13)
[2022-03-30 15:00] VITALS: BP 141/54
--- NOTE | 2022-03-30 16:44 | NUR ---
Message: Alba [phone] RE: Becky Hutson room 3020O - just a reminder about this patient's code status - we have POLST on file showing DNR.
[2022-03-30 18:00] VITALS: BP 112/59
--- NOTE | 2022-03-30 18:26 | NUR ---
Problems reprioritized. Patient report given, questions answered & plan of care reviewed with DIANA Castaneda.
[2022-03-30] MEDS: dabigatran 150mg capsule PO SCH (20:24)
[2022-03-30] MEDS: acetaminophen 325mg tablet PO PRN (20:41)
[2022-03-30 23:34] VITALS: BP 156/84
--- NOTE | 2022-03-31 00:04 | NUR ---
Received pt awake lethargic unwilling to feed self even though states she can. Pt. is missing upper dentures and unable to chew regular food. Sates upper dentures are at home. Able to swallow juice, jello and pudding without difficulty. Facial grimace when swallowing meds. Meds given with jello. Medicated for throat pain with Tylenol. Right arm peripheral IV intact NS infusing. Pt. is incontinent of urine does not request bedpan though encouraged. Urine large amt coral. Right hip and inner buttock bruising noted. Pt. c/o pain at both sites. Plan bedrest will try purewick; external cath, change diet food consistency to pureed. Addendum: 03/31/22 at 0014 by Adia Portillo RN Spoon fed pt. unwilling to feed self. Addendum: 03/31/22 at 0517 by Adia Portillo RN Alfredo otero
[2022-03-31 02:46] VITALS: BP 156/83
[2022-03-31 06:00] VITALS: BP 164/77
--- NOTE | 2022-03-31 06:20 | NUR ---
Patient in room PCU 3024. I have received report from DIANA Castaneda and had the opportunity to ask questions and assume patient care.
[2022-03-31] MEDS: K and/or MAG REPLACEMENT MC SCH ×4 (06:58→19:55)
[2022-03-31] MEDS: buPROPion SR 150mg tablet PO SCH ×2 (07:11→19:56)
[2022-03-31] MEDS: levoTHYROXINE 25mcg tablet PO SCH (07:11)
[2022-03-31] MEDS: CefTRIAXone/D5W-Rocephin 1gm 50 ML IV SCH (07:11)
[2022-03-31] MEDS: duloxetine 30mg CAPSULE.DR PO SCH (07:11)
[2022-03-31] MEDS: aspirin 81mg tab.chew PO SCH (07:12)
[2022-03-31] MEDS: atorvastatin 20mg tablet PO SCH (07:12)
[2022-03-31] MEDS: metoprolol succinate 25mg (24-HOUR) SR. Tablet PO SCH (07:12)
[2022-03-31] MEDS: dabigatran 150mg capsule PO SCH ×2 (07:12→19:56)
[2022-03-31] MEDS: docusate sod 100mg capsule PO SCH ×2 (07:13→19:56)
[2022-03-31] MEDS: acetaminophen 325mg tablet PO PRN (10:54)
[2022-03-31 11:00] VITALS: BP 168/84
[2022-03-31 15:00] VITALS: BP 154/78
[2022-03-31] MEDS: normal saline 1000ml 1,000 ML IV SCH (16:35)
--- NOTE | 2022-03-31 17:14 | NUR ---
Called the patient's sister whose number we had in the chart Dyan Miramontes to let her know that the patient will be transferred to [facility] today at 1830. A few moments later the patient's other sister called Jillian Dawn to say that she was unhappy that the patient was being transferred this late in the day and that she is going to be confused. She wanted to speak with case management as she does not believe it is customary to discharge a patient this late in the day. Paged case management with her phone number Jillian Dawn [phone].
--- NOTE | 2022-03-31 18:31 | NUR ---
Patient in room PCU 3024. I have received report from Alba Basurto RN and had the opportunity to ask questions and assume patient care.
--- NOTE | 2022-03-31 18:32 | NUR ---
Problems reprioritized. Patient report given, questions answered & plan of care reviewed with DIANA Irizarry.
--- NOTE | 2022-03-31 20:13 | NUR ---
Pt. discharged to [facility] via ambulance.Paper work has been given .
== END 2022-03-31 20:15 | DRG 853 ==
LOC: ER 12:30 → ED HOLD 17:49 → PCU 3S 03-26 16:41
PROVIDERS: ADMIT Family Medicine; ATTEND Family Medicine
PROC: 0PU43JZ Supplement Thoracic Vertebra with Synthetic Substitute, Percutaneous Approach (ICD-10-PCS; principal; 2022-03-29)
DX: A41.9 Sepsis, unspecified organism (principal); G93.41 Metabolic encephalopathy; S22.080A Wedge compression fracture of T11-T12 vertebra, initial encounter for closed fracture; S32.019A Unspecified fracture of first lumbar vertebra, initial encounter for closed fracture; N39.0 Urinary tract infection, site not specified; I48.20 Chronic atrial fibrillation, unspecified; F03.93 Unspecified dementia, unspecified severity, with mood disturbance; F03.94 Unspecified dementia, unspecified severity, with anxiety; Z20.822 Contact with and (suspected) exposure to COVID-19; Z66 Do not resuscitate; B96.20 Unspecified Escherichia coli [E. coli] as the cause of diseases classified elsewhere; Z60.2 Problems related to living alone; W18.39XA Other fall on same level, initial encounter; E03.9 Hypothyroidism, unspecified; E87.6 Hypokalemia; M54.9 Dorsalgia, unspecified; G89.29 Other chronic pain; I11.0 Hypertensive heart disease with heart failure; I48.91 Unspecified atrial fibrillation; I50.9 Heart failure, unspecified; R29.6 Repeated falls; Z74.01 Bed confinement status; Z79.01 Long term (current) use of anticoagulants; Z79.890 Hormone replacement therapy; Z79.899 Other long term (current) drug therapy; Z86.73 Personal history of transient ischemic attack (TIA), and cerebral infarction without residual deficits; Z87.891 Personal history of nicotine dependence; Z88.2 Allergy status to sulfonamides; Y93.89 Activity, other specified; Y92.89 Other specified places as the place of occurrence of the external cause; Y99.8 Other external cause status
CPT/HCPCS: 22513; 36415; 70450; 71045; 72125; 72128; 72131; 72148; 72192; 80053; 80061; 81001; 82140; 82550; 83036; 83605; 83735; 83880; 84100; 84145; 84443; 84484; 85025; 87040; 87077; 87081; 87088; 87186; 87811; 93005; 93306; 96361; 96374; 96375; 96376; 97110; 97116; 97162; 97530; 99152; 99153; 99285; A4353; A5200; A6212; A6213; C1713; G0378; J0696; J1200; J1644; J1940; J2250; J2270; J3010; J3490; J7030; J7040; Q9967